=== PATIENT | female | born 1995 | race Caucasian/White ===

== ENCOUNTER 2018-03-20 19:41 | Emergency (ER) | payer OTHER ==
--- NOTE | 2018-03-20 21:30 | ED Physician Documentation ---
PD HPI CHEST PAIN - Stated complaint Stated Complaint: HEART SKIPPING - Chief complaint Chief Complaint: Cardiac - History obtained from History obtained from: Patient - History of Present Illness Timing - onset: Today Timing - onset during: Rest (noticing frequent PVCs (hiccuping feeling in her chest) the past hour or so. Has had them infrequently in the past. Denies recent illness, stimulant use (decongestants, much caffeine, drugs). Denies vomiting nor eating problems. Has been hydrated.) Timing - details: Gradual onset, Intermittant Quality: Other (feels like a surge at times in her chest). No: Pressure, Tightness Location: Substernal Worsened by: No: Exertion, Inspiration Associated symptoms: Palpitations. No: Shortness of air, Diaphoresis, Nausea, Vomiting, Feeling faint / dizzy, General Weakness Similar symptoms before: No diagnosis (has had sinus tachycardia with normal ECHO and no abnormal rhythms in the past. No PVCs per se.) Recently seen: Not recently seen Review of Systems Constitutional: denies: Fever, Chills, Myalgias Nose: denies: Rhinorrhea / runny nose, Congestion Throat: denies: Sore throat Cardiac: reports: Palpitations. denies: Chest pain / pressure, Pedal edema, Calf pain Respiratory: denies: Cough, Wheezing GI: denies: Vomiting, Diarrhea : denies: Dysuria, Frequency Neurologic: denies: Generalized weakness, Near syncope Endocrine: denies: Weight loss PD PAST MEDICAL HISTORY - Past Medical History Past Medical History: Yes Cardiovascular: Arrhythmia (sinus tachycardia, idiopathic), Other Psych: Depression, Anxiety, Bipolar disorder Other Past Medical History: Sinus Tach - Past Surgical History Past Surgical History: No - Present Medications Home Medications: Ambulatory Orders Medication Instructions Recorded Confirmed Ivabradine [Corlanor] 1 tab PO BID 03/20/18 03/20/18 Lamotrigine [Lamotrigine ER] 1 tab PO BID 03/20/18 03/20/18 Potassium Chloride 10 meq PO DAILY #15 tablet.er 03/20/18 Sertraline HCl [Zoloft] 1 tab PO DAILY 03/20/18 03/20/18 - Allergies Allergies/Adverse Reactions: Allergies Allergy/AdvReac Type Severity Reaction Status Date / Time amoxicillin Allergy Hives Verified 03/20/18 19:48 - Social History Does the pt smoke?: No Smoking Status: Never smoker Does the pt drink ETOH?: Yes Does the pt have substance abuse?: No - Immunizations Immunizations are current?: Yes - POLST Patient has POLST: No PD ED PE NORMAL - Vitals Vital signs reviewed: Yes - General General: Alert and oriented X 3, No acute distress, Well developed/nourished, Other (small frame and size) - HEENT HEENT: Moist mucous membranes, Pharynx benign - Neck Neck: Supple, no meningeal sign, No adenopathy, No JVD - Cardiac Cardiac: RRR, No murmur - Respiratory Respiratory: Clear bilaterally - Abdomen Abdomen: Soft, Non tender - Derm Derm: Normal color, Warm and dry - Extremities Extremities: No deformity, No tenderness to palpate, No edema, No calf tend erness / cord - Neuro Neuro: Alert and oriented X 3, No motor deficit, Normal speech Results - Vitals Vitals: Oxygen O2 Source Room air - Labs Labs: Laboratory Tests 03/20/18 03/20/18 03/20/18 21:59 21:59 21:59 WBC 6.8 RBC 4.29 Hgb 13.7 Hct 39.7 MCV 92.6 MCH 32.0 H MCHC 34.6 RDW 12.9 Plt Count 278 MPV 8.0 Neut # (Auto) 4.2 Lymph # (Auto) 1.8 [place] # (Auto) 0.5 Eos # (Auto) 0.1 Baso # (Auto) 0.1 Absolute Nucleated RBC 0.01 Nucleated RBC % 0.1 Sodium 138 Potassium 3.8 Chloride 102 Carbon Dioxide 28 Anion Gap 8.0 BUN 9 Creatinine 0.8 Estimated GFR (MDRD) 89 Glucose 81 Calcium 9.5 Magnesium 2.3 Total Bilirubin 0.5 AST 18 ALT 13 Alkaline Phosphatase 84 B-Natriuretic Peptide 7 Total Protein 7.2 Albumin 4.4 Globulin 2.8 Albumin/Globulin Ratio 1.6 Lipase 33 PD MEDICAL DECISION MAKING - ED course Complexity details: reviewed results, considered differential (having PVCs. Electrolytes are okay. She says she had typically fast resting heart rate. Denies stimulant use (one soda a day). Denies eating disorder/vomiting. ), d/w patient - Sepsis Event Vital Signs: Oxygen O2 Source Room air Departure - Departure Disposition: 01 Home, Self Care Clinical Impression: PVCs (premature ventricular contractions), Palpitations Condition: Stable Record reviewed to determine appropriate education?: Yes Instructions: ED Palpitations Follow-Up: [facility] [Provider Group] Prescriptions: Potassium Chloride 10 meq PO DAILY #15 tablet.er Comments: Your blood tests are normal here there your potassium is on the lower and of normal. Adding a potassium supplement may help decrease the frequency of the PVCs. Otherwise stay well-hydrated and continue usual medications. You can contact your cardiology office tomorrow to let them know of the events. I do not think he will want any further workup at this time. PVCs are fairly common and you do not have any signs of significant cause for them. Discharge Date/Time: 03/20/18 22:55
[2018-03-20] MEDS ORDERED: POTASSIUM BICARB 25 MEQ TABLET PO STA (21:50)
[2018-03-20] MEDS ORDERED: MAGNESIUM OXIDE 400 MG TABLET PO STA (21:50)
[2018-03-20 22:04] LABS: BASOPHILS # (AUTO) 0.1 10^3/uL (0.0-0.1); BASOPHILS % (AUTO) 1.3 %; EOSINOPHILS # (AUTO) 0.1 10^3/uL (0.0-0.7); EOSINOPHILS % (AUTO) 2.2 %; HGB - HEMOGLOBIN 13.7 g/dL (12.0-16.0); LYMPHOCYTES # (AUTO) 1.8 10^3/uL (1.5-3.5); LYMPHOCYTES % (AUTO) 26.9 %; MEAN CORPUSCULAR HGB CONC 34.6 g/dL (32.0-36.0); MEAN CORPUSCULAR VOLUME 92.6 fL (81.0-99.0); MONOCYTES # (AUTO) 0.5 10^3/uL (0.0-1.0); NEUTROPHILS # (AUTO) 4.2 10^3/uL (1.5-6.6); NEUTROPHILS % (AUTO) 62.6 %; PLT - PLATELET COUNT 278 10^3/uL (130-450); RED BLOOD COUNT 4.29 10^6/uL (4.20-5.40); RED CELL DISTRIBUTION WIDTH 12.9 % (12.0-15.0); WHITE BLOOD COUNT 6.8 x10^3/uL (4.8-10.8)
[2018-03-20 22:18] LABS: ALBUMIN 4.4 g/dL (3.2-5.5); ALBUMIN/GLOBULIN RATIO 1.6 (1.0-2.2); BILIRUBIN,TOTAL 0.5 mg/dL (0.2-1.0); CALCIUM 9.5 mg/dL (8.5-10.3); CREATININE 0.8 mg/dL (0.4-1.0); MAGNESIUM 2.3 mg/dL (1.7-2.8); TOTAL PROTEIN 7.2 g/dL (6.7-8.2)
[2018-03-20 22:47] VITALS: BP 96/62
== END 2018-03-20 22:55 | disposition home or self-care (01) ==
LOC: ED 19:41
DX: I49.3 Ventricular premature depolarization (principal); R00.2 Palpitations; E87.6 Hypokalemia
CPT/HCPCS: 36415; 80053; 83690; 83735; 83880; 85025; 93005; 99283; A9270

== ENCOUNTER 2018-06-28 16:36 | Emergency (ER) | payer OTHER ==
[2018-06-28 16:46] VITALS: BP 116/81
[2018-06-28 17:39] LABS: BILIRUBIN,URINE NEGATIVE (NEGATIVE); GLUCOSE, URINE (UA) NEGATIVE (NEGATIVE); KETONES,URINE (UA) NEGATIVE (NEGATIVE); LEUKOCYTE ESTERASE, URINE NEGATIVE (NEGATIVE); NITRITE,URINE NEGATIVE (NEGATIVE); OCCULT BLOOD,URINE TRACE-LYSE (NEGATIVE); PROTEIN,URINE NEGATIVE (NEGATIVE); UROBILINOGEN,URINE 0.2 (NORMAL) E.U./dL (NORMAL)
[2018-06-28 17:42] LABS: CLARITY,URINE CLEAR (CLEAR); HCG UR QUAL NEGATIVE
[2018-06-28] MEDS ORDERED: HYDROcod/ACETAM 5/325 MG TABLET PO STA (17:47)
--- NOTE | 2018-06-28 17:51 | ED Physician Documentation ---
PD HPI FEMALE - Stated complaint Stated Complaint: FEM - Chief complaint Chief Complaint: Abd Pain - History obtained from History obtained from: Patient - History of Present Illness Timing - onset: How many days ago (several) Timing - duration: Days Timing - details: Gradual onset Pain level max: 6 Pain level max: 5 Associated symptoms: Pelvic pain, Vaginal discharge (White), Other (state sores present on labia). No: Fever, Chest/shoulder pain, Abdominal pain, Back pain, Vaginal pain, Vaginal bleeding Contributing factors: IUD (copper). No: Similar symptoms before: Has not had sx before Recently seen: Not recently seen - Additional information Additional information: 22-year-old female states she had unprotected sex approximately 2 weeks ago and since that time has had vaginal discharge itching and pain. Noted sores on the labia. Took Monistat without relief. Review of Systems Constitutional: denies: Fever, Chills Respiratory: denies: Cough GI: denies: Abdominal Pain, Nausea, Vomiting, Diarrhea : denies: Now EGA Skin: denies: Rash Musculoskeletal: denies: Neck pain, Back pain Neurologic: denies: Headache PD PAST MEDICAL HISTORY - Past Medical History Cardiovascular: Arrhythmia (sinus tachycardia, idiopathic), Other Psych: Depression, Anxiety, Bipolar disorder - Past Surgical History Past Surgical History: No - Present Medications Home Medications: Ambulatory Orders Medication Instructions Recorded Confirmed Lamotrigine [Lamotrigine ER] 1 tab PO BID 03/20/18 03/20/18 Sertraline HCl [Zoloft] 1 tab PO DAILY 03/20/18 03/20/18 Hydrocodone/Acetaminophen 1 - 2 each PO Q6H PRN #8 tablet 06/28/18 [Hydrocodon-Acetaminophen 5-325] - Allergies Allergies/Adverse Reactions: Allergies Allergy/AdvReac Type Severity Reaction Status Date / Time amoxicillin Allergy Hives Verified 06/28/18 16:46 - Social History Does the pt smoke?: No Smoking Status: Never smoker Does the pt drink ETOH?: Yes Does the pt have substance abuse?: No - Immunizations Immunizations are current?: Yes - POLST Patient has POLST: No PD ED PE NORMAL - Vitals Vital signs reviewed: Yes - General General: Alert and oriented X 3, No acute distress - HEENT HEENT: Moist mucous membranes - Neck Neck: Supple, no meningeal sign - Cardiac Cardiac: RRR - Respiratory Respiratory: No respiratory distress, Clear bilaterally - Abdomen Abdomen: Soft, Non tender, Non distended - Female Female : Ground Crewman present (Shruthi RN), Other (Mild irritation to the bilateral labia. No discrete lesions. Whitish vaginal discharge with irritated vaginal whitehead on exam. No cervical motion tenderness.) - Back Back: No spinal TTP - Derm Derm: Warm and dry - Neuro Neuro: Alert and oriented X 3 Results - Vitals Vitals: Vital Signs - 24 hr 06/28/18 16:45 Temperature 36.2 C L Heart Rate 93 Respiratory 16 Rate Blood Pressure 116/81 H O2 Saturation 100 Oxygen O2 Source Room air - Labs Labs: Microbiology 06/28/18 17:40 DAVON Preparation - Final Other - Vaginal 06/28/18 17:40 Wet Prep - Final Vaginal Laboratory Tests 06/28/18 17:25 Urine Color YELLOW Urine Clarity CLEAR Urine pH 6.0 Ur Specific [place] 1.015 Urine Protein NEGATIVE Urine Glucose (UA) NEGATIVE Urine Ketones NEGATIVE Urine Occult Blood TRACE-LYSE Urine Nitrite NEGATIVE Urine Bilirubin NEGATIVE Urine Urobilinogen 0.2 (NORMAL) Ur Leukocyte Esterase NEGATIVE Ur Microscopic Review NOT INDICATED Urine Culture Comments NOT INDICATED Urine HCG, Qual NEGATIVE PD MEDICAL DECISION MAKING - ED course Complexity details: reviewed results, re-evaluated patient, considered differential, d/w patient ED course: 22-year-old female with what appears to be a partially treated yeast infection. Given a dose of Diflucan here. Pain well controlled in the emergency department. Gonorrhea and Chlamydia testing were sent. She will follow-up with her doctor for HIV testing. Counseled to use condoms for sexual activity. Patient counseled regarding signs and symptoms for which I believe and urgent re-evaluation would be necessary. Patient with good understanding of and agreement to plan and is comfortable going home at this time This document was made in part using voice recognition software. While efforts are made to proofread this document, sound alike and grammatical errors may occur. Departure - Departure Disposition: 01 Home, Self Care Clinical Impression: Pelvic pain Condition: Good Instructions: ED Pelvic Pain [facility] Follow-Up: your,doctor in 1 week if not better [Other] Prescriptions: Hydrocodone/Acetaminophen [Hydrocodon-Acetaminophen 5-325] 1 - 2 each PO Q6H PRN #8 tablet PRN Reason: pain Comments: You can use the pain medication as needed. This should improve after the Diflucan. Your urine was also sent for gonorrhea and Chlamydia testing. We will receive a phone call if this is positive. Return if you worsen. Do not drink alcohol or drive while on narcotic pain medicine. Note that many narcotic pain relievers also contain tylenol/acetaminophen. Please ensure that your total dose of acetaminophen from all sources does not exceed 3 grams (3000mg) per day. You may constipated on this medication, take a stool softener such as "Colace" twice a day while you are on it. Also recommend a [id number] laxative such as senna or MiraLAX any day that you do not have a bowel movement. If you received narcotic pain medication in the emergency department, do not drive or operate machinery for the next 24 hours. Forms: Activity restrictions Discharge Date/Time: 06/28/18 19:01
[2018-06-28] MEDS ORDERED: FLUCONAZOLE 100 MG TABLET PO STA (18:29)
== END 2018-06-28 19:01 | disposition home or self-care (01) ==
LOC: ED 16:36
DX: R10.2 Pelvic and perineal pain (principal); Z97.5 Presence of (intrauterine) contraceptive device
CPT/HCPCS: 81003; 81025; 87210; 87220; 87491; 87591; 99283; A9270; 81001; 87086

== ENCOUNTER 2022-02-27 19:07 | Emergency (ER) | payer OTHER ==
[2022-02-27] MEDS ORDERED: diphenhydrAMINE INJ 50 MG/ML VIAL IVP STA (19:47)
[2022-02-27] MEDS ORDERED: SODIUM CHLORIDE 0.9% 1,000 ML IV STA (19:47)
[2022-02-27] MEDS ORDERED: PROCHLORPERAZINE 10 MG/2 ML VIAL IVP STA (19:47)
[2022-02-27] MEDS ORDERED: DEXAMETHASONE 10 MG/ML VIAL IV STA (19:48)
--- NOTE | 2022-02-27 19:51 | ED Physician Documentation ---
History of Present Illness - Stated complaint Stated Complaint: MIGRANE - Chief complaint Chief Complaint: Neuro - Additonal information Additional information: Patient is 26-year-old female, G2, P1 presenting with headache. Right-sided headache with associated photophobia, nausea and vomiting since this morning. Denies head trauma, loss of consciousness. Currently 2 to 3 weeks . He denies lower pelvic pain, dysuria, vaginal discharge. Review of Systems Ten Systems: 10 systems reviewed and negative Constitutional: denies: Fever Eyes: denies: Loss of vision Ears: denies: Loss of hearing Nose: denies: Rhinorrhea / runny nose Throat: denies: Dental pain / toothache Cardiac: denies: Chest pain / pressure Respiratory: denies: Dyspnea : denies: Dysuria Skin: denies: Rash Neurologic: denies: Generalized weakness PD PAST MEDICAL HISTORY - Past Medical History Cardiovascular: Arrhythmia (sinus tachycardia, idiopathic), Other Psych: Depression, Anxiety, Bipolar disorder - Past Surgical History Past Surgical History: No - Present Medications Home Medications: Ambulatory Orders Medication Instructions Recorded Confirmed Lamotrigine [Lamotrigine ER] 1 tab PO BID 03/20/18 03/20/18 Sertraline HCl [Zoloft] 1 tab PO DAILY 03/20/18 03/20/18 Hydrocodone/Acetaminophen 1 - 2 each PO Q6H PRN #8 tablet 06/28/18 [Hydrocodon-Acetaminophen 5-325] - Allergies Allergies/Adverse Reactions: Allergies Allergy/AdvReac Type Severity Reaction Status Date / Time amoxicillin Allergy Hives Verified 02/27/22 19:19 - Social History Does the pt smoke?: No Smoking Status: Never smoker Does the pt drink ETOH?: Yes Does the pt have substance abuse?: No - Immunizations Immunizations are current?: Yes - POLST Patient has POLST: No PD ED PE NORMAL - Vitals Vital signs reviewed: Yes - General General: Alert and oriented X 3, No acute distress - HEENT HEENT: Atraumatic, PERRL, EOMI, Ears normal, Moist mucous membranes - Neck Neck: Supple, no meningeal sign - Cardiac Cardiac: RRR - Respiratory Respiratory: No respiratory distress - Female Female : Deferred - Rectal Rectal: Deferred - Derm Derm: Normal color - Extremities Extremities: No deformity - Neuro Neuro: Alert and oriented X 3, celery packer 2-12 intact, No motor deficit, Normal speech Verbal: Oriented - Psych Psych: Normal mood Results - Vitals Vitals: Vital Signs - 24 hr 02/27/22 02/27/22 19:16 19:19 Temperature 37.2 C 37.2 C Heart Rate 94 94 Respiratory 14 14 Rate Blood Pressure 95/62 95/62 O2 Saturation 100 100 Oxygen O2 Source Room air PD MEDICAL DECISION MAKING - ED course Complexity details: d/w patient ED course: Patient is 26-year-old female with known history of migraine headache disorder presenting to the emergency department with headache ongoing x1 day. Afebrile, hemodynamically stable. Patient endorsed for early but denied any vaginal discharge, bleeding, pelvic pain that would be concerning for related complication. Had a nonfocal nonlateralizing neurologic exam with no red flags obtained on history that would be concerning for subarachnoid hemorrhage, meningitis, cavernous venous sinus thrombosis. Normal blood pressure here in the emergency department. Given Compazine, Benadryl, Decadron, IV hydration. Significant improvement in headache. Will discharge at this time with instructions to follow-up with primary care. Clear return precautions given prior to discharge. Departure - Departure Disposition: 01 Home, Self Care Clinical Impression: Migraine Instructions: ED Headache Migraine Comments: Thank you for allowing us to care for you today at [facility]. I am glad that we were able to help with your headache here in the emergency department. Please get plenty of sleep tonight. Please drink plenty fluids over the course of the next few days. I do recommend making a follow-up appoint with your primary care doctor. Tylenol is an excellent medication to take at home for headache and its safety is well-established in the setting of early . You will want to avoid nonsteroidal anti-inflammatory medication such as ibuprofen and naproxen. If it anytime you have any new or worsening symptoms please not hesitate to return.
[2022-02-27 21:55] VITALS: BP 101/57
== END 2022-02-27 21:56 | disposition home or self-care (01) ==
LOC: ED 19:07
DX: O99.891 Other specified diseases and conditions complicating pregnancy (principal); G43.909 Migraine, unspecified, not intractable, without status migrainosus; Z3A.01 Less than 8 weeks gestation of pregnancy
CPT/HCPCS: 96374; 96375; 99282; 99283; J1200

== ENCOUNTER 2022-11-21 14:11 | Outpatient (CLI) | payer OTHER ==
--- NOTE | 2022-11-21 15:10 | PROVIDER PROGRESS NOTE ---
- HPI Chief Complaint: Labor Current : Vital Signs Temperature 98.1 F 11/21/22 14:31 Heart Rate 96 11/21/22 14:31 Respiratory Rate 18 11/21/22 14:31 Blood Pressure 111/72 11/21/22 14:31 Temperature 98.1 F 11/21/22 14:33 Heart Rate 112 H 11/21/22 14:33 Respiratory Rate 18 11/21/22 14:33 Blood Pressure 111/72 11/21/22 14:33 O2 Saturation 100 11/21/22 14:33 If not protocol: Oxygen Flow, liters/minute - Exam patient is a at 23 weeks presenting with lower abdominal cramping that started last night. She denies vaginal bleeding and leakage of fluid. has been uncomplicated. History of one previous elective Gen: NAD Abd: soft, non-tender to palpation, no contractions palpated Cervical exam: long thick and closed, +yeast FHT: 150, appropriate for gestational age [place]: no contractions - Plan Plan: 1. cramping: cervix long/thick/closed 2. yeast: patient states she has treatment for yeast but has not been taking 3. U/A pending 4. discharge to home with precautions Gestational age too early for NST
[2022-11-21 15:40] LABS: BILIRUBIN,URINE NEGATIVE (NEGATIVE); GLUCOSE, URINE (UA) NEGATIVE (NEGATIVE); KETONES,URINE (UA) NEGATIVE (NEGATIVE); LEUKOCYTE ESTERASE, URINE MODERATE (NEGATIVE); NITRITE,URINE NEGATIVE (NEGATIVE); OCCULT BLOOD,URINE SMALL (NEGATIVE); PROTEIN,URINE NEGATIVE (NEGATIVE); UROBILINOGEN,URINE 0.2 (NORMAL) E.U./dL (NORMAL)
[2022-11-21 15:54] LABS: CLARITY,URINE CLEAR (CLEAR)
[2022-11-21 15:55] LABS: BACTERIA,URINE Few /HPF (None Seen); SQUAMOUS EPITHELIAL CELL,UR FEW Squamous (<= Few)
--- NOTE | 2022-11-21 16:20 | Labor Flowsheet ---
Labor Flowsheet Datetime Report Generated by CPN: 11/21/2022 16:19 Datetime: 11/21/2022 16:08 VITAL SIGNS NBP Sys/Xiomara/Mean (mmHg): 101 : 67 : 74 Pulse: 91 Datetime: 11/21/2022 14:55 SpO2 (%): 100
[2022-11-21 16:44] VITALS: BP 101/67
[2022-11-21 18:11] LABS: CHLAMYDIA TRACHOMATIS DNA NEGATIVE (NEGATIVE); NEISSERIA GONORRHOEAE DNA NEGATIVE (NEGATIVE); TRICHOMONAS VAGINALIS DNA NEGATIVE (NEGATIVE)
== END 2022-11-21 16:20 | disposition home or self-care (01) ==
LOC: WFO 14:11 → FBP 14:12 → WFO 16:20
PROVIDERS: ATTEND Obstetrics & Gynecology Obstetrics
DX: O99.891 Other specified diseases and conditions complicating pregnancy (principal); R10.30 Lower abdominal pain, unspecified; O98.812 Other maternal infectious and parasitic diseases complicating pregnancy, second trimester; B37.9 Candidiasis, unspecified; Z3A.23 23 weeks gestation of pregnancy
CPT/HCPCS: 81001; 81003; 87086; 87491; 87591; 87661; 99213

== ENCOUNTER 2023-10-29 19:11 | Emergency (ER) | payer OTHER ==
[2023-10-29 19:48] LABS: BASOPHILS # (AUTO) 0.1 10^3/uL (0.0-0.1); BASOPHILS % (AUTO) 0.8 %; EOSINOPHILS % (AUTO) 0.6 %; HCT - HEMATOCRIT 41.6 % (37.0-47.0); HGB - HEMOGLOBIN 13.5 g/dL (12.0-16.0); LYMPHOCYTES # (AUTO) 1.9 10^3/uL (1.5-3.5); LYMPHOCYTES % (AUTO) 29.8 %; MEAN CORPUSCULAR HEMOGLOBIN 29.6 pg (27.0-31.0); MEAN CORPUSCULAR HGB CONC 32.5 g/dL (32.0-36.0); MEAN CORPUSCULAR VOLUME 91.2 fL (81.0-99.0); MEAN PLATELET VOLUME 10.4 fL (7.9-10.8); MONOCYTES # (AUTO) 0.6 10^3/uL (0.0-1.0); MONOCYTES % (AUTO) 8.8 %; NEUTROPHILS # (AUTO) 3.7 10^3/uL (1.5-6.6); NEUTROPHILS % (AUTO) 59.8 %; PLT - PLATELET COUNT 300 10^3/uL (130-450); RED BLOOD COUNT 4.56 10^6/uL (4.20-5.40); RED CELL DISTRIBUTION WIDTH 12.8 % (12.0-15.0); WHITE BLOOD COUNT 6.2 x10^3/uL (4.8-10.8)
[2023-10-29 19:50] LABS: BILIRUBIN,URINE NEGATIVE (NEGATIVE); CLARITY,URINE CLEAR (CLEAR); GLUCOSE, URINE (UA) 100 mg/dL (NEGATIVE); KETONES,URINE (UA) TRACE mg/dL (NEGATIVE); LEUKOCYTE ESTERASE, URINE NEGATIVE (NEGATIVE); NITRITE,URINE NEGATIVE (NEGATIVE); OCCULT BLOOD,URINE TRACE-INTA (NEGATIVE); PH,URINE 6.5 PH (5.0-7.5); PROTEIN,URINE NEGATIVE (NEGATIVE); UROBILINOGEN,URINE 1 (NORMAL) E.U./dL (NORMAL)
[2023-10-29 19:53] LABS: HCG UR QUAL NEGATIVE
--- NOTE | 2023-10-29 19:55 | ED Physician Documentation ---
PD HPI ABD PAIN - Stated complaint Stated Complaint: R SIDE ABD/BACK PX - Chief complaint Chief Complaint: Abd Pain - History obtained from History obtained from: Patient - Additional information Additional information: 19-year-old woman with history of POTS more recently was diagnosed with a 7 mm left ureteral stone per her history at [facility] by CT. She has seen a urologist and is scheduled for surgery on Monday. She really never had any pain with that, she actually went to the hospital for poor appetite and the CT was done. Since then she has actually been having diffuse right-sided abdominal pain associated with nausea. It worsens around 4:00 each day and then stays bad until she goes to bed. She often wakes up nauseous but tries to take a Zofran in the middle of the night which does help. She has no history of abdominal surgeries save 2 C-sections. PD PAST MEDICAL HISTORY - Past Medical History Past Medical History: Yes Cardiovascular: Arrhythmia, Other Psych: Depression, Anxiety, Bipolar disorder Other Past Medical History: POTS - Past Surgical History Past Surgical History: No - Present Medications Home Medications: Ambulatory Orders Medication Instructions Recorded Confirmed Ondansetron Odt [Zofran Odt] 4 mg PO Q6HR PRN 10/29/23 10/29/23 Ondansetron Odt [Zofran] 4 mg TL Q6H PRN #20 tablet 10/29/23 - Allergies Allergies/Adverse Reactions: Allergies Allergy/AdvReac Type Severity Reaction Status Date / Time amoxicillin Allergy Hives Verified 10/29/23 19:15 - Social History Does the pt smoke?: No Smoking Status: Never smoker Does the pt drink ETOH?: Yes Does the pt have substance abuse?: No - Immunizations Immunizations are current?: Yes - POLST Patient has POLST: No PD ED PE NORMAL - Vitals Vital signs reviewed: Yes - General General: Alert and oriented X 3, No acute distress - Cardiac Cardiac: No murmur, Other (Tachycardic but regular without murmur. She states this heart rate is usual for her because of her POTS.) - Respiratory Respiratory: No respiratory distress - Abdomen Abdomen: Normal bowel sounds, Soft, Other (Mild right upper quadrant greater than left lower quadrant tenderness with equivocal Elizabeth sign.) Results - Vitals Vitals: Vital Signs - 24 hr 10/29/23 10/29/23 10/29/23 19:15 19:53 20:49 Temperature 36.8 C Heart Rate 140 H 118 H 132 H Respiratory 16 16 16 Rate Blood Pressure 140/87 H 119/91 H 106/74 O2 Saturation 99 100 100 10/29/23 21:00 Temperature 36.3 C L Heart Rate 116 H Respiratory 16 Rate Blood Pressure 106/70 O2 Saturation 100 Oxygen O2 Source Room air - Labs Labs: Laboratory Tests 10/29/23 10/29/23 10/29/23 19:25 19:25 19:25 WBC 6.2 RBC 4.56 Hgb 13.5 Hct 41.6 MCV 91.2 MCH 29.6 MCHC 32.5 RDW 12.8 Plt Count 300 MPV 10.4 Neut # (Auto) 3.7 Lymph # (Auto) 1.9 [place] # (Auto) 0.6 Eos # (Auto) 0.0 Baso # (Auto) 0.1 Absolute Nucleated RBC 0.00 Nucleated RBC % 0.0 Sodium 134 L Potassium 3.1 L Chloride 100 L Carbon Dioxide 26 Anion Gap 8.0 BUN 10 Creatinine 1.0 Estimated GFR (MDRD) 66 L Glucose 184 H Calcium 10.2 Total Bilirubin 0.6 AST 14 ALT 17 Alkaline Phosphatase 92 Total Protein 7.6 Albumin 4.7 Globulin 2.9 Albumin/Globulin Ratio 1.6 Lipase 36 Urine Color YELLOW Urine Clarity CLEAR Urine pH 6.5 Ur Specific [place] 1.025 Urine Protein NEGATIVE Urine Glucose (UA) 100 H Urine Ketones TRACE Urine Occult Blood TRACE-INTA Urine Nitrite NEGATIVE Urine Bilirubin NEGATIVE Urine Urobilinogen 1 (NORMAL) Ur Leukocyte Esterase NEGATIVE Ur Microscopic Review NOT INDICATED Urine Culture Comments NOT INDICATED Urine HCG, Qual NEGATIVE - Rads (name of study) RUQ /Pelvic sono Relevant Findings:: Prelim report reviewed, Final report received PD Medical Decision Making - ED course ED course: 27yo female with POTS with chronic tachy (not on meds d/t none workng for her) with R abd pain. Has been for some time and previous poss dx was referred pain from known 7mm L ureteral stone which is otherwise painless. Timecourse and WBC not c/w appy. DDX includes biliary dz, ovarian path etc. Labs showing mild hypoK and moderate hyerglcemia. Advised hig K diet and f/u for hyperglycemia. Sono with dominant R ov follicle and poss R nehprolith w/o hydro. Would have been better seen on previous CT @ [place]. So could be sx from ov follicle vs referred from L ureteral stone. Has appt for stone rtrieval in 2 days. F/U advised. No EMC identified and celined pain rx but wanted refill zofran. Departure - Departure Disposition: Home, Self Care Condition: Good Record reviewed to determine appropriate education?: Yes Instructions: ED Pelvic Pain [facility] Prescriptions: Ondansetron Odt [Zofran] 4 mg TL Q6H PRN #20 tablet PRN Reason: Nausea / Vomiting Comments: I [facility] [place] As discussed, pertinent results today were normal CBC, metabolic panel notable for normal liver enzymes and modestly elevated blood glucose at 184 and mildly low potassium level. Urinalysis showed no blood and you are not . Ultrasound showing likely small ovarian cyst on the right and she did wonder if you had a kidney stone on the right as well, but the CT from [facility] 2 weeks ago would have demonstrated that more clearly. Follow-up with the urologist on Monday as scheduled. Return for new or worsening symptoms. Also follow-up with your primary care nurse practitioner with discussion of potential repeat ultrasonography in 6 weeks to reevaluate the right ovary. Forms: PCP List Discharge Date/Time: 10/29/23 21:02
[2023-10-29 19:56] VITALS: O2SAT 100
[2023-10-29 20:05] LABS: ALBUMIN 4.7 g/dL (3.2-5.5); ALBUMIN/GLOBULIN RATIO 1.6 (1.0-2.2); BILIRUBIN,TOTAL 0.6 mg/dL (0.2-1.0); CALCIUM 10.2 mg/dL (8.5-10.3); POTASSIUM 3.1 mmol/L (3.5-4.5); TOTAL PROTEIN 7.6 g/dL (6.4-8.9)
[2023-10-29 21:02] VITALS: BP 106/70
--- NOTE | 2023-10-29 21:14 | Ultrasound Report ---
PROCEDURE: Pelvic w/Doppler Complete INDICATIONS: R abd pain TECHNIQUE: Grayscale and color Doppler images were obtained of the pelvis using transabdominal techni que. Spectral Doppler also used. COMPARISON: None. FINDINGS: Uterus: 6.7 x 3.1 x 5 cm. Endometrium measures 8 mm, within normal limits. Ovaries: Nonenlarged. Follicular cyst on the right measuring 1.8 cm. Color and spectral Doppler: flows are documented Other: No pathologic free fluid. IMPRESSION: No acute sonographic abnormality in the pelvis using transabdominal ultrasound. Reviewed by: Benjamin Cruz MD on 10/29/2023 9:13 PM PDT Approved by: Benjamin Cruz MD on 10/29/2023 9:13 PM PDT Station ID: [id number]
--- NOTE | 2023-10-29 21:16 | Ultrasound Report ---
PROCEDURE: Abdomen Limited INDICATIONS: ruq pain TECHNIQUE: Real-time focused scanning was performed of the abdomen, with image documentation. COMPARISONS: None. FINDINGS: The liver measures 13 cm. Hepatopedal main portal venous flow. Mildly echogenic appearance. Unremarkable gallbladder, but not well evaluated due to contracted state. Nondilated biliary system. Partially visualized pancreas is unremarkable. Right kidney measures 10 cm. 5 mm nonobstructing stone is seen. No hydronephrosis. IMPRESSION: No acute right upper quadrant sonographic abnormality. No biliary ductal dilation. The gallbladder ho wever was contracted and not well evaluated. No focal tenderness or discrete stone. Nonobstructing right renal stone identified. Mildly echogenic liver is nonspecific, most commonly technical artifact versus steatosis. Reviewed by: Benjamin Cruz MD on 10/29/2023 9:15 PM PDT Approved by: Benjamin Cruz MD on 10/29/2023 9:15 PM PDT Station ID: [id number]
== END 2023-10-29 21:02 | disposition home or self-care (01) ==
LOC: ED 19:11
DX: G90.A Postural orthostatic tachycardia syndrome [POTS] (principal); N20.1 Calculus of ureter; R73.9 Hyperglycemia, unspecified; E87.6 Hypokalemia; R00.0 Tachycardia, unspecified
CPT/HCPCS: 36415; 80053; 81001; 81003; 81025; 83690; 85025; 87086; 93975; 99283; 99284